=== PATIENT | female | born 1985 | race Two or more races ===

== ENCOUNTER 2020-10-26 12:33 | Inpatient (IN) | payer OTHER ==
[~2020-10-26] VITALS: Ht 170.2 cm; Wt 67.5 kg
[2020-10-26] MEDS ORDERED: ONDANSETRON HCL 4 MG/2 ML VIAL IV ONE (13:15)
[2020-10-26] MEDS ORDERED: SODIUM CHLORIDE 0.9% 1,000 ML IV ONE (13:15)
[2020-10-26] MEDS ORDERED: KETOROLAC TROMETH 30 MG/ML 1ML VIAL IV ONE ×2 (13:15→17:45)
[2020-10-26 13:21] LABS: Basophils # (auto) 0.1 10 ^3/uL (0-0.2); Basophils % (auto) 0.5 % (0.0-2.0); Eosinophils # (auto) 0 10 ^3/uL (0-0.8); Eosinophils % (auto) 0.1 % (0.0-7.0); Hematocrit 38.4 % (36.0-46.0); Hemoglobin 13.3 g/dL (12.2-16.2); Lymphocytes % (auto) 8.3 % (10.0-50.0); Mean Corpuscular Hemoglobin 31.5 pg (28.0-32.0); Mean Corpuscular Hgb Conc. 34.5 g/dL (32.0-36.0); Mean Corpuscular Volume 91.1 fL (80.0-100.0); Monocytes # (auto) 0.8 10 ^3/uL (0-1.3); Neutrophils # (auto) 9.8 10 ^3/uL (1.6-8.6); Neutrophils % (auto) 84.1 % (37.0-80.0); Nucleated Red Blood Cells % 0.1 %; Red Blood Cells 4.21 10^6/uL (4.0-5.20); Red Cell Distribution Width 12.3 % (11.8-14.3); White Blood Cell 11.7 10^3/uL (4.4-10.8)
[2020-10-26 13:43] LABS: Potassium 3.8 mmol/L (3.5-5.1)
[2020-10-26 13:44] LABS: Urine Bacteria NONE SEEN /hpf (None Seen); Urine Blood 3+ /uL (Negative); Urine Mucus MODERATE (None Seen); Urine Specific Gravity 1.031 (1.001-1.035); Urine WBC 2 /hpf (0 - 5)
[2020-10-26] MEDS ORDERED: IOHEXOL 300 MG/ML 100ML BOTTLE IJ ONE (13:55)
[2020-10-26] MEDS ORDERED: cefTRIAXone 1GM/50ML D5W 50 ML IV ONE (14:45)
[2020-10-26] MEDS ORDERED: ALUM & MAG HYDROX-SIMETH LIQ(MAALOX) 30 ML PO PRN (15:15)
[2020-10-26] MEDS ORDERED: SODIUM CHLORIDE 0.9% 1,000 ML IV SCH (15:15)
[2020-10-26] MEDS ORDERED: MORPHINE SULFATE INJECTION 2 MG/ML SYRG IV PRN ×3 (15:15→17:45)
[2020-10-26] MEDS ORDERED: NITROGLYCERIN 0.4 MG SL TAB SL PRN ×2 (15:15)
[2020-10-26] MEDS ORDERED: ACETAMINOPHEN 325 MG TAB PO PRN (15:15)
[2020-10-26] MEDS ORDERED: LORazepam 0.5 MG TAB PO PRN (15:15)
[2020-10-26] MEDS ORDERED: HYDROcodone-ACET 5/325MG TAB PO PRN (15:15)
[2020-10-26] MEDS ORDERED: DOCUSATE SOD 100 MG CAP PO PRN (15:15)
[2020-10-26] MEDS ORDERED: LACTATED RINGER'S 1,000 ML IV ONE (15:45)
[2020-10-26] MEDS ORDERED: metroNIDAZOLE 500MG/100ML 100 ML IV ONE (16:00)
[2020-10-26 16:24] LABS: Cholesterol 163 mg/dL (< 200)
[2020-10-26 16:27] LABS: HDL Cholesterol 62 mg/dL (40-59); LDL Cholesterol 90 mg/dL (< 100); Triglycerides 39 mg/dL (< 150)
[2020-10-26 16:45] LABS: INR 1.01 (0.9-1.15)
[2020-10-26] MEDS ORDERED: NEOSTIGMINE 1 MG/ML INJ (10mg/10ML VIAL) IV ONE (17:30)
[2020-10-26] MEDS ORDERED: ceFAZolin 1GM/50ML 100 ML IV ONE (17:30)
[2020-10-26] MEDS ORDERED: BUPIVACAINE 0.25% INJ 50ML VIAL ONE (17:30)
[2020-10-26] MEDS ORDERED: GLYCOPYRROLATE 0.2 MG/ML 1ML VIAL IV ONE (17:30)
[2020-10-26] MEDS ORDERED: fentaNYL CITRATE 100 MCG/2 ML VL ONE (17:33)
[2020-10-26] MEDS ORDERED: MIDAZOLAM HCL 2MG/2ML 2ml VIAL (1mg/ml) ONE (17:33)
[2020-10-26] MEDS ORDERED: MEPERIDINE HCL (50 MG/ML) 1 ML VIAL ONE (17:34)
[2020-10-26 17:43] LABS: INR 1.01 (0.9-1.15); Partial Thromboplastin Time 27.3 sec (23.0-31.2)
[2020-10-26] MEDS ORDERED: HYDROmorphone HCL 2 MG/ML VL IV PRN (17:45)
[2020-10-26] MEDS ORDERED: LABETALOL HCL 5 MG/ML 4ML SYRINGE IV PRN (17:45)
[2020-10-26] MEDS ORDERED: ONDANSETRON HCL 4 MG/2 ML VIAL IV PRN (17:45)
[2020-10-26] MEDS ORDERED: ePHEDrine SULFATE 50 MG/ML AMP IV PRN (17:45)
[2020-10-26] MEDS ORDERED: PROPOFOL 10 MG/ML 20 ML IV ONE (17:53)
[2020-10-26] MEDS ORDERED: DexAMETHasone SOD PHOS 10MG/1ML VIAL INJ ONE ×2 (17:53→18:08)
[2020-10-26] MEDS: D5W/SOD CHL 0.45%/KCL 20MEQ 1,000 ML IV SCH (19:30)
[2020-10-26 20:35] VITALS: BP 115/78
[2020-10-26 21:49] VITALS: BP 115/78
[2020-10-26] MEDS: metroNIDAZOLE 500MG/100ML 100 ML IV SCH (22:19)
[2020-10-26 23:43] LABS: Amphetamine Screen, Urine NEGATIVE (NEGATIVE); Barbiturate Scree,Urine NEGATIVE (NEGATIVE); Benzodiazephine Screen, Urine NEGATIVE (NEGATIVE); Cannabinoid Screen, Urine NEGATIVE (NEGATIVE); Cocaine Screen, Urine NEGATIVE (NEGATIVE); Opiate Scree,Urine NEGATIVE (NEGATIVE); Phencyclidine Screen, Urine NEGATIVE (NEGATIVE)
[2020-10-27] MEDS: MORPHINE SULFATE INJECTION 2 MG/ML SYRG IV PRN ×2 (02:35→08:03)
[2020-10-27] MEDS: ONDANSETRON HCL 4 MG/2 ML VIAL IV PRN ×2 (02:35→08:03)
[2020-10-27 04:06] VITALS: BP 116/76
[2020-10-27] MEDS: metroNIDAZOLE 500MG/100ML 100 ML IV SCH (05:49)
[2020-10-27 06:05] LABS: Basophils # (auto) 0 10 ^3/uL (0-0.2); Eosinophils # (auto) 0 10 ^3/uL (0-0.8); Hemoglobin 11.6 g/dL (12.2-16.2); Lymphocytes # (auto) 0.8 10 ^3/uL (0.4-5.4); Lymphocytes % (auto) 7.8 % (10.0-50.0); Mean Corpuscular Volume 91.4 fL (80.0-100.0); Monocytes # (auto) 0.6 10 ^3/uL (0-1.3); Monocytes % (auto) 5.8 % (0.0-12.0); Neutrophils # (auto) 8.9 10 ^3/uL (1.6-8.6); Neutrophils % (auto) 86.4 % (37.0-80.0); Nucleated Red Blood Cells % 0.1 %; Red Blood Cells 3.61 10^6/uL (4.0-5.20); Red Cell Distribution Width 12.2 % (11.8-14.3); White Blood Cell 10.3 10^3/uL (4.4-10.8)
[2020-10-27 06:13] LABS: INR 1.04 (0.9-1.15); Partial Thromboplastin Time 28.6 sec (23.0-31.2)
[2020-10-27 06:21] LABS: Albumin 2.9 g/dL (3.4-5.0); Calcium 8.4 mg/dL (8.5-10.1); Potassium 4.1 mmol/L (3.5-5.1)
[2020-10-27 06:24] LABS: BUN/Creatinine Ratio 13.9; Bilirubin, Total 0.5 mg/dL (0.2-1.0); Phosphorus 2.8 mg/dL (2.5-4.90); Total Protein 5.9 g/dL (6.4-8.2)
[2020-10-27] MEDS: D5W/SOD CHL 0.45%/KCL 20MEQ 1,000 ML IV SCH (08:19)
[2020-10-27 08:41] VITALS: BP 118/72
[2020-10-27] MEDS ORDERED: cefTRIAXone 1GM/50ML D5W 50 ML IV SCH (09:00)
[2020-10-27 12:22] VITALS: BP 118/72
[2020-10-27 13:00] VITALS: BP 132/72
== END 2020-10-27 14:00 | disposition home or self-care (01) | DRG 343 ==
LOC: ER 12:33 → TELE 15:14 → TELE-CENTR 20:35
PROVIDERS: ADMIT Hospitalist; ATTEND Internal Medicine
PROC: 0DTJ4ZZ Resection of Appendix, Percutaneous Endoscopic Approach (ICD-10-PCS; principal; 2020-10-26 17:40)
DX: K35.30 Acute appendicitis with localized peritonitis, without perforation or gangrene (principal); Z20.822 Contact with and (suspected) exposure to COVID-19; D72.829 Elevated white blood cell count, unspecified; R00.0 Tachycardia, unspecified
CPT/HCPCS: 36415; 74177; 80048; 80053; 80061; 80307; 81001; 81025; 82306; 83036; 83735; 84100; 84443; 84484; 84702; 85025; 85610; 85730; 86850; 86900; 86901; 87040; 87086; 87426; 96361; 96365; 96367; 96375; G0378; J0690; J0696; J1100; J1885; J2250; J2405; J2704; J3490

== ENCOUNTER 2025-02-14 23:23 | Inpatient (IN) | payer OTHER ==
[~2025-02-14] VITALS: Ht 172.7 cm; Wt 59.1 kg
[2025-02-15] MEDS: ALPRAZolam 0.5 MG TAB PO ONE (00:49)
[2025-02-15 01:00] VITALS: PULSE 172; RESP 14; O2SAT 95
--- NOTE | 2025-02-15 01:18 | ED.PDOC ---
History of Present Illness HPI Comments Patient is a otherwise healthy 39-year-old female who arrives the ED today with complaints of palpitations and anxiety concerns. Patient states she was asleep when she woke up due to what she thought was anxiety. Patient denies any history of medication use or medical conditions. Patient has no history of a nxiety. Patient did not look toxic at time of evaluation. Chief Complaint: Anxiety Time Seen by MD: 00:34 Primary Care Provider: NI Reviewed Notes: Nurses Notes Allergies: Coded Allergies: NO KNOWN ALLERGIES (Unverified , 10/26/20) Home Meds No Active Prescriptions or Reported Meds Information Source: Patient, Friend Mode of Arrival: Ambulatory Severity: Moderate Timing: Minutes Duration: Since onset Prehospital treatment: None Past Medical History PAST MEDICAL HISTORY: Denies Surgical History: Denies all surgeries STEAM HAND History: Denies all STEAM HAND Hx Family History Family History: Reviewed,noncontributory to illness Social History Smoker: Non-Smoker Alcohol: Denies ETOH Use Drugs: Denies Drug Use Lives In: Home Constitutional: denies: chills, diaphoresis, fatigue, fever, malaise, sweats, weakness, others EENTM: denies: blurred vision, double vision, ear bleeding, ear discharge, ear drainage, ear pain, ear ringing, eye pain, eye redness, hearing loss, mouth pain, mouth swelling, nasal discharge, nose bleeding, nose congestion, nose pain, photophobia, tearing, throat pain, throat swelling, voice changes, others Respiratory: denies: cough, hemoptysis, orthopnea, SOB at rest, shortness of breath, SOB with excertion, stridor, wheezing, others Cardiovascular: reports: palpitations; denies: chest pain, dizzy spells, diaphoresis, Dyspnea on exertion, edema, irregular heart beat, left arm pain, lightheadedness, PND, syncope, others Gastrointestinal: denies: abdomen distended, abdominal pain, blood streaked bowels, constipated, diarrhea, dysphagia, difficulty swallowing, hematemesis, melena, nausea, poor appetite, poor fluid intake, rectal bleeding, rectal pain, vomiting, others Genitourinary: denies: abnormal vagina bleeding, burning, dyspareunia, dysuria, flank pain, frequency, hematuria, incontinence, pain, , vagina discharge, urgency, others Neurological: denies: dizziness, fainting, headache, left sided numbness, left sided weakness, numbness, paresthesia, pre-existing deficit, right sided num bness, right sided weakness, seizure, speech problems, tingling, tremors, weakness, others Musculoskeletal: denies: back pain, gout, joint pain, joint swelling, muscle pain, muscle stiffness, neck pain, others Integumetry: denies: bruises, change in color, change in hair/nails, dryness, laceration, lesions, lumps, rash, wounds, others Allergic/Immunocompromised: denies: Difficulty Healing, Frequent Infections, Hives, Itching, others Hematologic/Lymphatic: denies: anemia, blood clots, easy bleeding, easy bruising, swollen glands, others Endocrine: denies: excessive hunger, excessive sweating, excessive thirst, excessive urination, flushing, intolerance to cold, intolerance to heat, unexplained weight gain, unexplained weight loss, others Psychiatric: denies: anxiety, bipolar disorder, depression, hopeless, panic disorder, schizophrenia, sleepless, suicidal, others Physical Exam General Appearance: Mild Distress (Patient was in moderate distress due to what appears to be anxiety due to her palpitations ), Normal HEENT: Normal ENT Inspection, Pharynx Normal, TMs Normal Neck: Full Range of Motion, Non-Tender, Normal, Normal Inspection Respiratory: Chest Non-Tender, Lungs Clear, No Accessory Muscle Use, No Respiratory Distress, Normal Breath Sounds Cardiovascular: Irregular, No Edema, No JVD, No Murmur, No Gallop, Normal Peripheral Pulses, Tachycardia Breast Exam: Deferred Gastrointestinal: No Organomegaly, Non Tender, No Pulsatile Mass, Normal Bowel Sounds, Soft Genitalia: Deferred Pelvic: Deferred Rectal: Deferred Extremities: No calf tenderness, Normal capillary refill, Normal inspection, Normal range of motion, Non-tender, No pedal edema Neurologic: Alert, No Motor Deficits, Normal Affect, Normal Mood, No Sensory Deficits Cerebellar Function: Normal Reflexes: Normal Skin: Dry, Normal Color, Warm Lymphatic: No Adenopathy Was a procedure done? Was a procedure done?: No Differential Dx Considerations may include: Anxiety, acute coronary syndrome, UTI X-Ray, Labs, Meds, VS Vital Signs Date Time Temp Pulse Resp B/P (MAP) Pulse Ox O2 Delivery O2 Flow Rate FiO2 02/15/25 00:55 168 02/14/25 23:23 97.7 104 16 144/86 (105) 99 97.7 Current Medications Medications (Trade) Dose Ordered Sig/Patricia Route Start Time Stop Time Status Last Admin Alprazolam (Xanax Tablet) 0.5 mg ONCE ONCE PO 02/15/25 00:45 02/15/25 00:46 DC 02/15/25 00:49 X-Ray, Labs, Meds, VS Comment Patient is provided with a dose of Xanax to aid in the anxiety, unfortunately, EKG came back with an atrial fibrillation at a rate of 168. RSR in V1 or V2 with a right VC ED. also probable left ventricular hypertrophy. QT interval of 277. Patient will be pharmaceutical converted and admitted for new onset AFib and will require a cardiac evaluation. Time of 1ST Reevaluation: 01:17 Reevaluation 1ST: Unchanged Consultation: PCP, Cardiology Patient Education/Counseling: Diagnosis, Treatment Family Education/Counseling: Diagnosis, Treatment SEPSIS Sepsis Screen Date sepsis recognized/suspect: Feb 15, 2025 Time Sepsis recognized/suspect: 37 Recent Procedure: No On Antibiotic Therapy: No Respiratory Rate >20: No Heart Rate >90: Yes Temp<36 C (96.8 F) or >38.3 C: No SBP <90 or MAP <65 mmHG: No New Acute Mental Status Change: No Is the patient on CPAP, BIPAP,: No Physician Orders Electrocardigram (02/15/25 00:39) Urinalysis (02/15/25 00:39) Heplock Iv (02/15/25 ) Complete Blood Count (02/15/25 01:04) Comprehensive Metabolic Panel (02/15/25 01:04) Lipase (02/15/25 01:04) Lactic Acid W/ Reflex Order (02/15/25 01:04) Troponin-I Hs (02/15/25 01:04) Troponin-I Hs (02/15/25 02:04) Troponin-I Hs (02/15/25 04:04) Continuous Ekg Monitoring 08,12,16,20,00,04 (02/15/25 01:04) Vital Signs Date Time Temp Pulse Resp B/P (MAP) Pulse Ox O2 Delivery O2 Flow Rate FiO2 02/15/25 00:55 168 02/14/25 23:23 97.7 104 16 144/86 (105) 99 97.7 Medications Medications Dose Ordered Sig/Patricia Route Start Time Stop Time Status Last Admin Dose Admin Alprazolam 0.5 mg ONCE ONCE PO 02/15/25 00:45 02/15/25 00:46 DC 02/15/25 00:49 Departure 1 Departure Time of Disposition: 01:19 Impression: Primary Impression: Atrial fibrillation Disposition: ADMITTED INPATIENT Condition: Stable e-Prescriptions No Active Prescriptions or Reported Meds Discharged With: Self Critical Care Note Critical Care Time?: No Stability Stability form required: No Heart Score Heart Score: Heart Score Response (Comments) Value History Slightly Suspicious 0 EKG Repolarization Disturb 1 Age <45 0 Risk Factors No known risk factors 0 Troponin N/A 0 Total 1 VASILE LINO PAC Feb 15, 2025 01:18
[2025-02-15] MEDS: dilTIAZem 25 MG/5 ML VIAL IV ONE (01:40)
[2025-02-15 01:51] LABS: Hematocrit 44.1 % (36.0-46.0); Hemoglobin 15.2 g/dL (12.2-16.2); Mean Corpuscular Hemoglobin 31.3 pg (28.0-32.0); Mean Corpuscular Volume 90.6 fL (80.0-100.0); Nucleated Red Blood Cells % 0.1 %
[2025-02-15 01:55] LABS: Urine Protein, UAD Negative (Negative)
[2025-02-15 02:18] LABS: Alanine Aminotransferase 17 U/L (7-40); Albumin 4.7 g/dL (3.2-4.8); Alkaline Phosphatase 68 U/L (46-116); Anion Gap 8 (5-15); BUN/Creatinine Ratio 13.8 (10.0-20.0); Blood Urea Nitrogen 9 mg/dL (9-23); Calcium 9.5 mg/dL (8.7-10.4); Carbon Dioxide 25 mmol/L (20-31); Chloride 106 mmol/L (98-107); Glucose 105 mg/dL (74-106); Lipase 34 U/L (12-53); Potassium 3.7 mmol/L (3.5-5.1); Sodium 139 mmol/L (136-145); Total Protein 7.3 g/dL (5.7-8.2)
[2025-02-15 02:19] LABS: Bilirubin, Total 0.6 mg/dL (0.2-1.0)
[2025-02-15] MEDS ORDERED: METOPROLOL TARTRATE 1MG/1ML-5ML VIAL IV SCH (02:30)
[2025-02-15] MEDS: METOPROLOL TARTRATE 1MG/1ML-5ML VIAL IV SCH (02:48)
[2025-02-15] MEDS ORDERED: TEMAZEPAM 15 MG CAP PO PRN (04:30)
[2025-02-15] MEDS ORDERED: ACETAMINOPHEN 325 MG TAB PO PRN (04:30)
[2025-02-15] MEDS ORDERED: MORPHINE SULFATE INJ 2 MG/ml SYRG IV PRN (04:30)
[2025-02-15] MEDS ORDERED: ONDANSETRON HCL 4 MG/2 ML VIAL IV PRN (04:30)
[2025-02-15] MEDS: AMIODARONE 360mg/200mL PREMIX 200 ML IV ONE (04:30)
[2025-02-15] MEDS ORDERED: NITROGLYCERIN 0.4 MG SL TAB SL PRN (04:30)
[2025-02-15] MEDS: AMIODARONE BOLUS KIT 100 ML IV ONE (04:30)
--- NOTE | 2025-02-15 04:38 | DVHHP2 ---
History of Present Illness Reason for Visit: Palpitations History of Present Illness 39-year-old female presents for evaluation of palpitations. Patient reports taking a nap in the afternoon and being awoken by what she thought was initially anxiety. She developed severe palpitations. She presented for further evaluation. No complaints of chest pain, shortness for breath or nausea. No other acute complaints reported. Past Medical History Denies Past Surgical History Denies Family History Noncontributory Smoke: No ALCOHOL: occassional Drugs: None Lives: with Family Review of Systems Review of Systems Review of systems are currently negative otherwise addressed in HPI. Allergies: Coded Allergies: NO KNOWN ALLERGIES (Unverified , 10/26/20) Exam Vital Signs Vital Signs Date Time Temp Pulse Resp B/P (MAP) Pulse Ox O2 Delivery O2 Flow Rate FiO2 02/15/25 04:00 112 02/15/25 03:46 108/76 02/15/25 03:20 15 95 02/14/25 23:23 97.7 97.7 Exam Gen: 39-year-old female in mild distress Skin: Warm, dry, normal color and texture, no rash. HEENT: Normocephalic atraumatic, mucous membranes moist and pink. Neck: Cervical and supraclavicular nodes normal without enlargement, trachea is midline, thyroid gland is normal without masses. Pulmonary: Clear to auscultation and percussion bilaterally. Cardiac: Regular rhythms Abdomen: Soft, nontender, nondistended, bowel sounds present all 4 quadrants, no guarding, no rigidity, no organomegaly. Extremities: No cyanosis, clubbing, no edema Neuro: Cranial nerves II through XII grossly intact, normal affect and speech, no focal motor deficits. Labs/Xrays Labs Test 02/15/25 02:43 02/15/25 01:37 02/15/25 00:27 Range/Units Troponin I High Sensitivity 8 </=34 ng/L White Blood Count 7.7 4.4-10.8 10^3/uL Red Blood Count 4.87 4.0-5.20 10^6/uL Hemoglobin 15.2 12.2-16.2 g/dL Hematocrit 44.1 36.0-46.0 % Mean Corpuscular Volume 90.6 80.0-100.0 fL Mean Corpuscular Hemoglobin 31.3 28.0-32.0 pg Mean Corpuscular Hemoglobin Concent 34.6 32.0-36.0 g/dL Red Cell Distribution Width 13.2 11.8-14.3 % Platelet Count 297 140-450 10^3/uL Mean Platelet Volume 9.0 6.9-10.8 fL Neutrophils (%) (Auto) 69.0 37.0-80.0 % Lymphocytes (%) (Auto) 20.9 10.0-50.0 % Monocytes (%) (Auto) 8.3 0.0-12.0 % Eosinophils (%) (Auto) 1.0 0.0-7.0 % Basophils (%) (Auto) 0.8 0.0-2.0 % Neutrophils # (Auto) 5.3 1.6-8.6 10 ^3/uL Lymphocytes # (Auto) 1.6 0.4-5.4 10 ^3/uL Monocytes # (Auto) 0.6 0-1.3 10 ^3/uL Eosinophils # (Auto) 0.1 0-0.8 10 ^3/uL Basophils # (Auto) 0.1 0-0.2 10 ^3/uL Nucleated Red Blood Cells 0.1 % Sodium Level 139 136-145 mmol/L Potassium Level 3.7 3.5-5.1 mmol/L Chloride Level 106 98-107 mmol/L Carbon Dioxide Level 25 20-31 mmol/L Anion Gap 8 5-15 Blood Urea Nitrogen 9 9-23 mg/dL Creatinine 0.65 0.550-1.02 mg/dL Glomerular Filtration Rate Calc 116 >90 mL/min BUN/Creatinine Ratio 13.8 10.0-20.0 Serum Glucose 105 74-106 mg/dL Lactic Acid Level 1.3 0.4-2.0 mmol/L Calcium Level 9.5 8.7-10.4 mg/dL Total Bilirubin 0.6 0.2-1.0 mg/dL Aspartate Amino Transferase (AST) 18 13-40 U/L Alanine Aminotransferase (ALT) 17 7-40 U/L Alkaline Phosphatase 68 46-116 U/L Total Protein 7.3 5.7-8.2 g/dL Albumin 4.7 3.2-4.8 g/dL Lipase 34 12-53 U/L Urine Color Colorless Yellow Urine Clarity Clear Clear Urine pH 7.0 5.0-9.0 Urine Specific Dalton 1.002 1.001-1.035 Urine Protein Negative Negative Urine Ketones Negative Negative Urine Blood Negative Negative /uL Urine Nitrite Negative Negative Urine Bilirubin Negative Negative Urine Urobilinogen Normal Negative mg/dL Urine Leukocyte Esterase Negative Negative /uL Urine RBC None seen 0 - 4 /hpf Urine Microscopic WBC < 1 0-5 /HPF Urine Squamous Epithelial Cells Few <5 /hpf Urine Bacteria Few H None Seen /hpf Urine Glucose Normal Normal mg/dL SEPSIS Sepsis Screen Date sepsis recognized/suspect: Feb 15, 2025 Time Sepsis recognized/suspect: 37 Recent Procedure: No On Antibiotic Therapy: No Respiratory Rate >20: No Heart Rate >90: Yes Temp<36 C (96.8 F) or >38.3 C: No SBP <90 or MAP <65 mmHG: No New Acute Mental Status Change: No Is the patient on CPAP, BIPAP,: No Physician Orders Electrocardigram (02/15/25 00:39) Heplock Iv (02/15/25 ) Continuous Ekg Monitoring 08,12,16,20,00,04 (02/15/25 01:04) Amiodarone Bolus Kit (Cordarone) (02/15/25 04:30) Amiodarone 360mg/200ml Premix (Nexterone (02/15/25 04:30) Amiodarone 360mg/200ml Premix (Nexterone (02/15/25 10:30) * Cardiology Consult (02/15/25 04:23) Basic Metabolic Panel (02/16/25 04:00) Thyroid Stimulating Hormone (02/15/25 04:23) Admit (02/15/25 04:23) Temazepam (Restoril) (02/15/25 04:30) Ondansetron Hcl (Zofran) (02/15/25 04:30) Cardiac Diet-2gna,Lofat,Lochol (02/15/25 Breakfast) Echo 2d Mode Cardiac Dop (02/15/25 04:23) Condition: Fair (02/15/25 04:23) Acetaminophen Tablet (Tylenol Tablet) (02/15/25 04:30) Bedrest With Bathroom Privileg (02/15/25 04:23) Nitroglycerin Sublingual (Ntrostat Subli (02/15/25 04:30) Morphine Sulfate Injection (02/15/25 04:30) Stat Ekg For Chest Pain (02/15/25 04:23) Notify Md Of Changes From Base (02/15/25 04:23) Oil Heater Operator For 24 Hours (02/15/25 04:23) Emergency Dysrhythmia Protocol (02/15/25 04:23) Rhythm Strips Once Every Shift (02/15/25 04:23) Oxygen By Nasal Cannula (02/15/25 04:23) Vital Signs Date Time Temp Pulse Resp B/P (MAP) Pulse Ox O2 Delivery O2 Flow Rate FiO2 02/15/25 04:00 112 02/15/25 03:46 100 108/76 02/15/25 03:46 108 108/76 02/15/25 03:20 122 108/76 02/15/25 03:20 123 15 108/76 (87) 95 02/15/25 02:55 124 7 122/78 (93) 94 02/15/25 02:55 132 122/78 02/15/25 02:50 164 8 122/80 (94) 95 02/15/25 02:48 168 122/80 02/15/25 02:30 144 8 113/86 (95) 97 02/15/25 00:55 168 02/14/25 23:23 97.7 104 16 144/86 (105) 99 97.7 Laboratory Tests Test 02/15/25 01:37 Lactic Acid Level 1.3 mmol/L (0.4-2.0) White Blood Count 7.7 10^3/uL (4.4-10.8) Medications Medications Dose Ordered Sig/Patricia Route Start Time Stop Time Status Last Admin Dose Admin Alprazolam 0.5 mg ONCE ONCE PO 02/15/25 00:45 02/15/25 00:46 DC 02/15/25 00:49 0.5 MG Diltiazem HCl 15 mg ONCE ONCE IV 02/15/25 01:15 02/15/25 01:16 DC 02/15/25 01:40 15 MG Metoprolol Tartrate 5 mg Q5M IV 02/15/25 02:30 02/15/25 04:32 DC 02/15/25 03:20 5 MG Assessment/Plan Assessment/Plan Assessment AFib with RVR Plan Admit the patient to telemetry to the hospitalist Echocardiogram pending Cardiology consult Continue amiodarone ip Plan discussed with: Patient My Orders Orders - HANK AVILA Procedure Category Date Status Time * Cardiology Consult CONS 02/15/25 Transmitted 04:23 Basic Metabolic Panel LAB 02/16/25 Verified 04:00 Thyroid Stimulating LAB 02/15/25 Transmitted Hormone 04:23 Admit ADMIT 02/15/25 Transmitted 04:23 Temazepam (Restoril) PHA 02/15/25 Transmitted 04:30 Ondansetron Hcl PHA 02/15/25 Transmitted (Zofran) 04:30 Cardiac DIET 02/15/25 Transmitted Diet-2gna,Lofat,Lochol Breakfast Echo 2d Mode Cardiac US 02/15/25 Transmitted DOP 04:23 Condition: Fair [facility] 02/15/25 Transmitted 04:23 Acetaminophen Tablet [facility] 02/15/25 Verified (Tylenol Tablet) 04:30 Bedrest With Bathroom [facility] 02/15/25 Verified Privileg 04:23 Nitroglycerin [facility] 02/15/25 Verified Sublingual (Ntrostat 04:30 Morphine Sulfate [facility] 02/15/25 Verified Injection 04:30 Stat Ekg For Chest [facility] 02/15/25 Verified Pain 04:23 Notify Md Of Changes [facility] 02/15/25 Verified From Base 04:23 Oil Heater Operator For [facility] 02/15/25 Verified 24 Hours 04:23 Emergency Dysrhythmia [facility] 02/15/25 Verified Protocol 04:23 Rhythm Strips Once [facility] 02/15/25 Verified Every Shift 04:23 Oxygen By Nasal RT 02/15/25 Verified Cannula 04:23 Date of Service: Feb 15, 2025 Billing Provider: HANK AVILA Common Visit Codes: [id number] INP/OBS CARE (HIGH) HANK AVILA Feb 15, 2025 04:38
--- NOTE | 2025-02-15 05:32 | DVH ---
CHEST RADIOGRAPH Indication: afib Technique: Single frontal view of the chest was obtained COMPARISON: None FINDINGS: Lines and Tubes: None Lungs: Clear Pleura: No effusion. No pneumothorax. Cardiomediastinal contours: Unremarkable Bones: Unremarkable IMPRESSION: 1. No acute disease.
[2025-02-15 05:43] LABS: INR 0.99 (0.9-1.15); Partial Thromboplastin Time 30.6 SEC (24.5-34.5); Prothrombin Time 10.5 sec (9.3-11.8)
[2025-02-15 08:00] VITALS: PULSE 82; RESP 16; O2SAT 96
[2025-02-15] MEDS: AMIODARONE 360mg/200mL PREMIX 200 ML IV SCH (10:30)
[2025-02-15 13:46] LABS: Amphetamine Screen, Urine Neg (NEGATIVE); Barbiturate Scree,Urine Neg (NEGATIVE); Benzodiazephine Screen, Urine Neg (NEGATIVE); Cannabinoid Screen, Urine Neg (NEGATIVE); Cocaine Screen, Urine Neg (NEGATIVE); Opiate Scree,Urine Neg (NEGATIVE); Phencyclidine Screen, Urine Neg (NEGATIVE)
--- NOTE | 2025-02-15 14:20 | DVHPNRES ---
Progress Note Date Seen: Feb 15, 2025 Resident Creating Document: DENISSE MIDDLETON ANNA Has the PT tested + for MRSA If YES, has PT been informed?: No Medical Necessity Reason Pt with a Central, PICC or Fol: No Subjective Review of Systems 39-year-old female presents for evaluation of palpitations. Patient reports taking a nap in the afternoon and being awoken by what she thought was initially anxiety. She developed severe palpitations. She presented for further evaluation. No complaints of chest pain, shortness for breath or nausea. No other acute complaints reported. Per patient, he has on and off palpitation since 7 years which mostly happens prior to menstruation starts, but has never been diagnosed with the atrial fibrillation. Today, the patient seen and examined at the bedside. Patient is feeling better since admission does not have any active complaint including palpitation or chest pain. Objective vital signs Vital Sign Date Time Temp Pulse Resp B/P (MAP) Pulse Ox O2 Delivery O2 Flow Rate FiO2 02/15/25 12:19 97.0 70 15 121/90 (100) 95 97.0 02/15/25 08:00 Room Air* 0 21 medications Current Medications Medications Dose Ordered Sig/Patricia Route Start Time Stop Time Status Last Admin Dose Admin Temazepam 15 mg QHSP PRN PO 02/15/25 04:30 Ondansetron HCl 4 mg Q4HP PRN IV 02/15/25 04:30 Acetaminophen 650 mg Q6HP PRN PO 02/15/25 04:30 Examination General Appearance: Alert, Oriented X3, Cooperative, No acute distress HEENT: Atraumatic, PERRLA, EOMI, Mucous membrane moist/pink Respiratory: Clear to auscultation, Normal air movement Cardiovascular: Regular rate, Normal S1, Normal S2, No murmurs, no chest wall tenderness Abdominal: Normal bowel sounds, Soft, No tenderness, No hepatospenomegaly, No masses Extremities: No clubbing, No cyanosis, No edema, Normal pulses, No tenderness/swelling Skin: No rashes, No breakdown, No significant lesion Neuro: Normal gait, Normal speech, Strength at 5/5 X4 ext, Normal tone, Sensation intact, Cranial nerves 3-12 NL, Reflexes 2+ Psych/Mental Status: Mental status NL, Mood NL laboratory and microbiology Laboratory Tests 02/15/25 01:37 Test 02/15/25 01:37 Range/Units Serum Glucose 105 74-106 mg/dL Labs and/or images reviewed: Labs reviewed by me, Image(s) reviewed by me Problem List/Assessment/Plan Problem List/Assessment/Plan Palpitation, due to atrial fibrillation Atrial fibrillation with RVR, reverted to normal sinus rhythm with amiodarone Anxiety * EKG upon admission showed atrial fibrillation with fast ventricular response * Currently, EKGs shows normal sinus rhythm with no significant ST or T-wave changes * Serial trop I is within normal limits * Chest x-ray shows no intrathoracic abnormalities * Chads Vasc score: 0 Plan/recommendation * Discontinue amiodarone drip * Check echocardiogram * We will monitor the patient on telemetry * Check UDS DIET: Regular diet DVT PROPHYLAXIS: Lovenox CODE STATUS: Goal of care discussed for more than 18 minutes, full code DISPOSITION: Telemetry Patient's status and plan discussed with the patient. Case discussed with Dr. Wolf. Plan discussed with: Patient, Other My Orders My Orders Orders - DENISSE MIDDLETON Procedure Category Date Status Time Electrocardigram EKG 02/15/25 Logged 08:24 Date of Service: Feb 15, 2025 Billing Provider: ROSCOE WOLF MD Common Visit Codes: [id number] INP/OBS CARE(HIGH) DENISSE MIDDLETON RESDIENT Feb 15, 2025 14:19 ROSCOE WOLF MD Feb 18, 2025 13:34
--- NOTE | 2025-02-15 14:29 | DVHSR ---
APPROVED REPORT EXAM: Two-dimensional and M-mode echocardiogram with Doppler and color Doppler. Blood Pressure: 120/87 mmHg INDICATION Atrial Fibrillation RISK FACTORS Height: 5'8", Weight: 130 DIMENSIONS LVDd4.4 (3.8-5.7cm)LA (2D)3.7 (1.9-4.0cm)Aortic Root3.5 (2.0-3.7cm) LVDs3.0 (2.5-4.0cm)LA (MM) (1.9-4.0cm)Aortic Cusp Exc1.7 (1.5-2.0cm) EF (%) 60.0 (55-70%)Rt. Atrium4.5 (1.9-4.0cm)Asc. Aorta cm IVSd1.0 (0.7-1.1cm)RV (D)3.9 (1.8-2.4cm) PWd0.9 (0.7-1.1cm) Mitral Valve MitralMitral Stenosis E wave0.66m/sMV Mean GR.mmHg A wave0.62m/sMV Peak GR.mmHg E/A ratio1.12D MVAcm2 DECEL [id number] 1/2 Timems Aortic Valve Aortic ValveAortic Stenosis V10.77m/Mikal Mean GR.2mmHg V21.00m/Mikal Peak GR.4mmHg LVOT Diameter1.9 (1.8-2.4cm)Doppler AVA2.18cm2 Pulmonic Valve V20.56m/s Tricuspid Valve TR Velocity1.85m/s [id number] Other Information Technically limited study due to body habitus. Conclusion lvef 65% normal RV function and size normal atria normal pericardium no severe valve abnormalities noted
[2025-02-15 21:25] VITALS: PULSE 78; RESP 18
[2025-02-16] VITALS (8 sets, daily range): BP systolic 94–138; BP diastolic 63–107; PULSE 68–91; RESP 14–20; TEMP 97.4–98.2; O2SAT 97–99
[2025-02-16 07:24] LABS: Chloride 103 mmol/L (98-107); Potassium 3.7 mmol/L (3.5-5.1); Sodium 138 mmol/L (136-145)
[2025-02-16 07:25] LABS: Anion Gap 8 (5-15); Calcium 9.9 mg/dL (8.7-10.4); Carbon Dioxide 27 mmol/L (20-31)
[2025-02-16 07:30] LABS: BUN/Creatinine Ratio 12.9 (10.0-20.0); Glucose 92 mg/dL (74-106)
[2025-02-16 07:31] LABS: Blood Urea Nitrogen 9 mg/dL (9-23)
--- NOTE | 2025-02-16 14:56 | DVHINCON2 ---
Date Seen: Feb 16, 2025 Referring Physician MD Josh resident Reason for Consultation Atrial fibrillation History of Present Illness This is a 39-year-old female patient who presents to emergency room with chief complaint of palpitations for 1 hour prior to emergency room arrival. The patient decided to come to the emergency room for further evaluation. Initial twelve electrocardiogram reveals atrial fibrillation with rapid ventricular response. The patient was given diltiazem 15 mg IV x1 followed by an amiodarone bolus and an amiodarone drip per protocol. At the time of assessment, the patient is now in a normal sinus rhythm. The patient denies any past medical history other than previous surgical history of appendectomy. Past Medical History Past medical history reviewed. No other significant than mentioned above. Past Surgical History Appendectomy Family History: FH: HTN (hypertension) G8 MOTHER Family History Family history reviewed. Social History Patient denies any illicit drug use Patient denies any tobacco use Patient admits to 2-3 drinks of alcohol every other night Allergies: Coded Allergies: NO KNOWN ALLERGIES (Unverified , 10/26/20) Home Meds No Active Prescriptions or Reported Meds Home Meds Denies taking any prescribed medications Review of Systems Constitutional: No symptom reported Ears, Nose, & Throat: No symptom reported Eyes: No symptom reported Neurological: No symptoms reported Pulmonary/Respiratory: No symptoms reported Cardiovascular: Palpitations Gastrointestinal: No symptom reported Genitourinary: No symptom reported Musculoskeletal: No symptom reported Skin: No symptom reported Psychiatric: No symptom reported Endocrine: No symptom reported Hematologic/Lymphatic: No symptom reported Vital Signs Vital Signs Date Time Temp Pulse Resp B/P (MAP) Pulse Ox O2 Delivery O2 Flow Rate FiO2 02/16/25 12:59 98.1 88 20 134/93 (107) 99 98.1 02/16/25 08:00 Room Air* 0 21 Physical Exam General Appearance: Cooperative. Well-developed. Well-nourished. No acute di stress. Pulmonary/Respiratory: Clear, bilateral breaths sounds. Cardiovascular/Chest: Regular rate and rhythm. Peripheral Pulses: 2+ Radial (R). 2+ Radial (L). 2+ Pedal (R). 2+ Pedal (L) Abdominal Exam: Normal bowel sounds. Ankle Exam: Negative ankle edema Lower extremities: Negative lower extremity edema Neuro/Mental Status: A/OX4, coherent. Thoughts/Psych: Normal thought pattern. Appropriate mood and affect. Good judgment and insight. Appearance: No acute distress. Skin Exam: Normal inspection. Normal color. Warm and dry. Labs/Diagnostic Data Labs Test 02/16/25 06:33 02/15/25 02:43 02/15/25 01:37 02/15/25 00:27 Range/Units Sodium Level 138 136-145 mmol/L Potassium Level 3.7 3.5-5.1 mmol/L Chloride Level 103 98-107 mmol/L Carbon Dioxide Level 27 20-31 mmol/L Anion Gap 8 5-15 Blood Urea Nitrogen 9 9-23 mg/dL Creatinine 0.70 0.550-1.02 mg/dL Glomerular Filtration Rate Calc 114 >90 mL/min BUN/Creatinine Ratio 12.9 10.0-20.0 Serum Glucose 92 74-106 mg/dL Calcium Level 9.9 8.7-10.4 mg/dL Troponin I High Sensitivity 8 </=34 ng/L White Blood Count 7.7 4.4-10.8 10^3/uL Red Blood Count 4.87 4.0-5.20 10^6/uL Hemoglobin 15.2 12.2-16.2 g/dL Hematocrit 44.1 36.0-46.0 % Mean Corpuscular Volume 90.6 80.0-100.0 fL Mean Corpuscular Hemoglobin 31.3 28.0-32.0 pg Mean Corpuscular Hemoglobin Concent 34.6 32.0-36.0 g/dL Red Cell Distribution Width 13.2 11.8-14.3 % Platelet Count 297 140-450 10^3/uL Mean Platelet Volume 9.0 6.9-10.8 fL Neutrophils (%) (Auto) 69.0 37.0-80.0 % Lymphocytes (%) (Auto) 20.9 10.0-50.0 % Monocytes (%) (Auto) 8.3 0.0-12.0 % Eosinophils (%) (Auto) 1.0 0.0-7.0 % Basophils (%) (Auto) 0.8 0.0-2.0 % Neutrophils # (Auto) 5.3 1.6-8.6 10 ^3/uL Lymphocytes # (Auto) 1.6 0.4-5.4 10 ^3/uL Monocytes # (Auto) 0.6 0-1.3 10 ^3/uL Eosinophils # (Auto) 0.1 0-0.8 10 ^3/uL Basophils # (Auto) 0.1 0-0.2 10 ^3/uL Nucleated Red Blood Cells 0.1 % Prothrombin Time 10.5 9.3-11.8 sec Prothrombin Time INR 0.99 0.9-1.15 Activated Partial Thromboplast Time 30.6 24.5-34.5 SEC Lactic Acid Level 1.3 0.4-2.0 mmol/L Magnesium Level 1.9 1.6-2.6 mg/dL Total Bilirubin 0.6 0.2-1.0 mg/dL Aspartate Amino Transferase (AST) 18 13-40 U/L Alanine Aminotransferase (ALT) 17 7-40 U/L Alkaline Phosphatase 68 46-116 U/L Total Protein 7.3 5.7-8.2 g/dL Albumin 4.7 3.2-4.8 g/dL Lipase 34 12-53 U/L Thyroid Stimulating Hormone (TSH) 3.96 0.55-4.78 uIU/mL Plasma/Serum Blood Alcohol < 3.0 <10 mg/dL Urine Color Colorless Yellow Urine Clarity Clear Clear Urine pH 7.0 5.0-9.0 Urine Specific [place] 1.002 1.001-1.035 Urine Protein Negative Negative Urine Ketones Negative Negative Urine Blood Negative Negative /uL Urine Nitrite Negative Negative Urine Bilirubin Negative Negative Urine Urobilinogen Normal Negative mg/dL Urine Leukocyte Esterase Negative Negative /uL Urine RBC None seen 0 - 4 /hpf Urine Microscopic WBC < 1 0-5 /HPF Urine Squamous Epithelial Cells Few <5 /hpf Urine Bacteria Few H None Seen /hpf Urine Glucose Normal Normal mg/dL Urine Opiates Screen Neg NEGATIVE Urine Fentanyl Screen Neg NEGATIVE Urine Barbiturates Screen Neg NEGATIVE Urine Phencyclidine Screen Neg NEGATIVE Urine Amphetamines Screen Neg NEGATIVE Urine Benzodiazepines Screen Neg NEGATIVE Urine Cocaine Screen Neg NEGATIVE Urine Cannabinoids Screen Neg NEGATIVE Assessment Atrial fibrillation with rapid ventricular response, newly diagnosed, now normal sinus rhythm Alcohol use Anxiety Plan/Recommendation We will continue following plan/recommendations (Dr. Sandra): Case discussed with . A transthoracic echocardiogram reveals an EF of 65% with no valve abnormalities. [id number] VASc score: 0 points. Consider NOAC therapy for at least 30 days prior to discharge given chemical cardioversion and risk for thromboembolic event. Initiate low-dose metoprolol. Consider outpatient event monitor. There is no further inpatient cardiac workup indicated. The patient has a scheduled to follow up with Cardiology in the outpatient setting on 03/18/25 at 10:30am with Dr. May. Thank you for allowing us to care for this patient. Please call with any questions or concerns. Critical care time spent: 44 minutes This medical document was created using an electronic medical record system with voice recognition software and computerized dictation system. Although this document has been carefully reviewed, there might still be some phonetic and typographical errors. Occasional wrong-word or ``sound-alike substitutions may have occurred due to the inherent limitations of voice recognition software. These areas are purely typographical due to imperfections of the software programs and do not reflect any compromise in the patient's medical care. Please read the chart carefully and recognize, using context, where these substitutions have occurred. Plan discussed with: Patient NYHA Physical activity limitations: NA Date of Service: Feb 16, 2025 Billing Provider: SILVESTRE RAMIREZ Cardiology Common Codes: 34634-QHRKIDV INP/OBS CARE (High) Cardiology Consultation Codes: 59722-UENHNOIUJ CONSULT <45MIN SILVESTRE RAMIREZ Feb 16, 2025 14:56
--- NOTE | 2025-02-16 15:54 | DVHPNRES ---
Progress Note Date Seen: Feb 16, 2025 Resident Creating Document: DENISSE MIDDLETON ANNA Has the PT tested + for MRSA If YES, has PT been informed?: No Medical Necessity Reason Pt with a Central, PICC or Fol: No Subjective Review of Systems Patient seen and examined at bedside. Patient is feeling better since admission. With the patient is still complaining of occasional palpitation. Cardiology consulted. Objective vital signs Vital Sign Date Time Temp Pulse Resp B/P (MAP) Pulse Ox O2 Delivery O2 Flow Rate FiO2 02/16/25 12:59 98.1 88 20 134/93 (107) 99 98.1 02/16/25 08:00 Room Air* 0 21 Total Intake and Output 02/15/25 02/15/25 02/16/25 15:00 23:00 07:00 Intake Total 166.63 ml 83.30 ml 0 ml Balance 166.63 ml 83.30 ml 0 ml medications Current Medications Medications Dose Ordered Sig/Patricia Route Start Time Stop Time Status Last Admin Dose Admin Acetaminophen 650 mg Q6HP PRN PO 02/15/25 04:30 Examination General Appearance: Alert, Oriented X3, Cooperative, No acute distress HEENT: Atraumatic, PERRLA, EOMI, Mucous membrane moist/pink Respiratory: Clear to auscultation, Normal air movement Cardiovascular: Regular rate, Normal S1, Normal S2, No murmurs, no chest wall tenderness Abdominal: Normal bowel sounds, Soft, No tenderness, No hepatospenomegaly, No masses Extremities: No clubbing, No cyanosis, No edema, Normal pulses, No tenderness/swelling Skin: No rashes, No breakdown, No significant lesion Neuro: Normal gait, Normal speech, Strength at 5/5 X4 ext, Normal tone, Sensation intact, Cranial nerves 3-12 NL, Reflexes 2+ Psych/Mental Status: Mental status NL, Mood NL laboratory and microbiology Laboratory Tests 02/16/25 06:33 02/15/25 01:37 Test 02/16/25 06:33 Range/Units Serum Glucose 92 74-106 mg/dL Labs and/or images reviewed: Labs reviewed by me, Image(s) reviewed by me Problem List/Assessment/Plan Problem List/Assessment/Plan Palpitation, due to atrial fibrillation Atrial fibrillation with RVR, reverted to normal sinus rhythm with amiodarone Anxiety * EKG upon admission showed atrial fibrillation with fast ventricular response * Currently, EKGs shows normal sinus rhythm with no significant ST or T-wave changes * Serial trop I is within normal limits * Chest x-ray shows no intrathoracic abnormalities * Chads Vasc score: 0 Plan/recommendation * Discontinue amiodarone drip * Echocardiogram study normal * Consulted cardiology * We will continue monitor the patient on telemetry for any event DIET: Regular diet DVT PROPHYLAXIS: Lovenox CODE STATUS: Goal of care discussed for more than 18 minutes, full code DISPOSITION: Telemetry Patient's status and plan discussed with the patient. Case discussed with Dr. Wolf. Plan discussed with: Patient, Other (On) My Orders My Orders Orders - DENISSE MIDDLETON Procedure Category Date Status Time * Cardiology Consult CONS 02/16/25 Transmitted 13:47 Date of Service: Feb 16, 2025 Billing Provider: ROSCOE WOLF MD Common Visit Codes: [id number] INP/OBS CARE(HIGH) DENISSE MIDDLETON RESDIENT Feb 16, 2025 15:54 ROSCOE WOLF MD Feb 18, 2025 13:41
[2025-02-16] MEDS: METOPROLOL TARTRATE 25 MG TAB PO SCH (21:20)
[2025-02-17 01:00] VITALS: BP 128/72; PULSE 85; RESP 14; TEMP 97.9; O2SAT 99
[2025-02-17 05:00] VITALS: BP 125/82; PULSE 93; RESP 14; TEMP 97.5; O2SAT 98
[2025-02-17 05:30] LABS: Anion Gap 6 (5-15); Carbon Dioxide 28 mmol/L (20-31); Chloride 105 mmol/L (98-107); Potassium 4.3 mmol/L (3.5-5.1); Sodium 139 mmol/L (136-145)
[2025-02-17 05:32] LABS: Calcium 9.5 mg/dL (8.7-10.4)
[2025-02-17 05:36] LABS: BUN/Creatinine Ratio 10.8 (10.0-20.0); Glucose 91 mg/dL (74-106)
[2025-02-17 05:40] LABS: Blood Urea Nitrogen 7 mg/dL (9-23)
[2025-02-17 07:48] VITALS: PULSE 97; RESP 18; O2SAT 98
[2025-02-17 08:00] VITALS: PULSE 99
[2025-02-17 08:39] VITALS: BP 109/83; PULSE 97; RESP 19; TEMP 98; O2SAT 98
[2025-02-17 12:55] VITALS: BP 135/96; PULSE 71; RESP 18; TEMP 97.5; O2SAT 99
[2025-02-17] MEDS ORDERED: METO25TA93 PO (13:34)
[2025-02-17] MEDS ORDERED: APIX5TAB PO (13:34)
--- NOTE | 2025-02-17 13:35 | DVHDSRES ---
Discharge Summary Date of Admission Resident Creating Document: DENISSE MIDDLETON RESDIENT Feb 15, 2025 at 04:23 Date of Discharge: Feb 17, 2025 Labs/Diagnostic Data: Laboratory Results Test 02/17/25 04:31 02/15/25 02:43 02/15/25 01:37 02/15/25 00:27 Sodium Level 139 mmol/L (136-145) Potassium Level 4.3 mmol/L (3.5-5.1) Chloride Level 105 mmol/L (98-107) Carbon Dioxide Level 28 mmol/L (20-31) Anion Gap 6 (5-15) Blood Urea Nitrogen 7 mg/dL (9-23) Creatinine 0.65 mg/dL (0.550-1.02) Glomerular Filtration Rate Calc 116 mL/min (>90) BUN/Creatinine Ratio 10.8 (10.0-20.0) Serum Glucose 91 mg/dL (74-106) Calcium Level 9.5 mg/dL (8.7-10.4) Troponin I High Sensitivity 8 ng/L (</=34) White Blood Count 7.7 10^3/uL (4.4-10.8) Red Blood Count 4.87 10^6/uL (4.0-5.20) Hemoglobin 15.2 g/dL (12.2-16.2) Hematocrit 44.1 % (36.0-46.0) Mean Corpuscular Volume 90.6 fL (80.0-100.0) Mean Corpuscular Hemoglobin 31.3 pg (28.0-32.0) Mean Corpuscular Hemoglobin Concent 34.6 g/dL (32.0-36.0) Red Cell Distribution Width 13.2 % (11.8-14.3) Platelet Count 297 10^3/uL (140-450) Mean Platelet Volume 9.0 fL (6.9-10.8) Neutrophils (%) (Auto) 69.0 % (37.0-80.0) Lymphocytes (%) (Auto) 20.9 % (10.0-50.0) Monocytes (%) (Auto) 8.3 % (0.0-12.0) Eosinophils (%) (Auto) 1.0 % (0.0-7.0) Basophils (%) (Auto) 0.8 % (0.0-2.0) Neutrophils # (Auto) 5.3 10 ^3/uL (1.6-8.6) Lymphocytes # (Auto) 1.6 10 ^3/uL (0.4-5.4) Monocytes # (Auto) 0.6 10 ^3/uL (0-1.3) Eosinophils # (Auto) 0.1 10 ^3/uL (0-0.8) Basophils # (Auto) 0.1 10 ^3/uL (0-0.2) Nucleated Red Blood Cells 0.1 % Prothrombin Time 10.5 sec (9.3-11.8) Prothrombin Time INR 0.99 (0.9-1.15) Activated Partial Thromboplast Time 30.6 SEC (24.5-34.5) Lactic Acid Level 1.3 mmol/L (0.4-2.0) Magnesium Level 1.9 mg/dL (1.6-2.6) Total Bilirubin 0.6 mg/dL (0.2-1.0) Aspartate Amino Transferase (AST) 18 U/L (13-40) Alanine Aminotransferase (ALT) 17 U/L (7-40) Alkaline Phosphatase 68 U/L (46-116) Total Protein 7.3 g/dL (5.7-8.2) Albumin 4.7 g/dL (3.2-4.8) Lipase 34 U/L (12-53) Thyroid Stimulating Hormone (TSH) 3.96 uIU/mL (0.55-4.78) Plasma/Serum Blood Alcohol < 3.0 mg/dL (<10) Urine Color Colorless (Yellow) Urine Clarity Clear (Clear) Urine pH 7.0 (5.0-9.0) Urine Specific [place] 1.002 (1.001-1.035) Urine Protein Negative (Negative) Urine Ketones Negative (Negative) Urine Blood Negative /uL (Negative) Urine Nitrite Negative (Negative) Urine Bilirubin Negative (Negative) Urine Urobilinogen Normal mg/dL (Negative) Urine Leukocyte Esterase Negative /uL (Negative) Urine RBC None seen /hpf (0 - 4) Urine Microscopic WBC < 1 /HPF (0-5) Urine Squamous Epithelial Cells Few /hpf (<5) Urine Bacteria Few /hpf (None Seen) Urine Glucose Normal mg/dL (Normal) Urine Opiates Screen Neg (NEGATIVE) Urine Fentanyl Screen Neg (NEGATIVE) Urine Barbiturates Screen Neg (NEGATIVE) Urine Phencyclidine Screen Neg (NEGATIVE) Urine Amphetamines Screen Neg (NEGATIVE) Urine Benzodiazepines Screen Neg (NEGATIVE) Urine Cocaine Screen Neg (NEGATIVE) Urine Cannabinoids Screen Neg (NEGATIVE) Other Laboratory Tests 02/17/25 04:31 02/15/25 01:37 Brief Hx & Hospital Course: HISTORY OF PRESENTING ILLNESS: 39-year-old female presents for evaluation of palpitations. Patient reports taking a nap in the afternoon and being awoken by what she thought was initially anxiety. She developed severe palpitations. She presented for further evaluation. No complaints of chest pain, shortness for breath or nausea. No other acute complaints reported. Per patient, he has on and off palpitation since 7 years which mostly happens prior to menstruation starts, but has never been diagnosed with the atrial fibrillation. HOSPITAL COURSE: Patient was admitted on the line of atrial fibrillation with rapid ventricular response. EKG performed, showed AFib with RVR. Subsequently the patient was given bolus amiodarone which departed rhythm to sinus rhythm. Echocardiogram was performed, showed normal studies. Cardiology was consulted, evaluated the patient and recommended metoprolol 25 mg daily, Eliquis 5 mg b.i.d. for 30 days and cardiology follow up for Holter monitoring. On 02/07/2025, the patient was feeling better since admission. Discharge plan discussed with the patient the patient discharged home. DISCHARGE PLAN: Follow up with the PCP within 1 week of the discharge. Follow up with the Cardiology on outpatient basis. Follow up with the discharge Clinic within 1 week of the discharge. Tablet metoprolol succinate 25 mg daily Tablet Eliquis 5 mg b.i.d. for 30 days DISCHARGE DIAGNOSIS: Atrial fibrillation with rapid ventricular response Anxiety Acquired hypercoagulability Alcohol use disorder Condition at Discharge: Good Final Diagnosis/Problems List Atrial Firbillation with RVR Discharge Disposition: Home Discharge Instruct/Medications Diet: Cardiac 2g Na,low cholest Activity: No Restrictions, As Tolerated Follow Up/Referral: Follow up with the PCP within 1 week of the discharge. Follow up with the Cardiology on outpatient basis. Follow up with the discharge Clinic within 1 week of the discharge Medications: Tablet Eliquis 5 mg b.i.d. for 30 days Med tablet metoprolol 25 mg daily Scheduled Apixaban Base (Eliquis), 5 MG PO BID Metoprolol Succinate (Metoprolol Succinate Er), 25 MG PO DAILY Discharge Statement: "Patient was advised to return to the ER or call 911 if any headaches, dizziness, shortness of breath, chest pain, abdominal pain, bleeding, fevers, or worsening of medical condition. Patient was counseled about treatment plan, medications, possible side effects, patientverbalized understanding. All questions were answered to the best of my ability. This discharge took greater then 30 minutes in planning, reviewing documentation, counseling the patient, and discussing with other team members." ASSESSMENT ASSESSMENT Assessment Atrial Firbillation with RVR Date of Service: Feb 17, 2025 Billing Provider: ROSCOE WOLF MD Common Visit Codes: 11368-BDU/OBS DISCH DAY >30min DENISSE MIDDLETON RESDIROLANDO Feb 17, 2025 13:35 ROSCOE WOLF MD Feb 18, 2025 14:01
== END 2025-02-17 16:30 | disposition home or self-care (01) | DRG 309 ==
LOC: ER 23:23 → OVERFLOW 02-15 04:23 → TELE-WESTW 02-15 21:25
PROVIDERS: ADMIT Student in an Organized Health Care Education/Training Program; ATTEND Student in an Organized Health Care Education/Training Program
DX: I48.91 Unspecified atrial fibrillation (principal); D68.59 Other primary thrombophilia; F41.9 Anxiety disorder, unspecified; F10.10 Alcohol abuse, uncomplicated; Z82.49 Family history of ischemic heart disease and other diseases of the circulatory system; Z90.49 Acquired absence of other specified parts of digestive tract; Z79.899 Other long term (current) drug therapy; Y90.9 Presence of alcohol in blood, level not specified
CPT/HCPCS: 36415; 71045; 80048; 80053; 80307; 80320; 81001; 83605; 83690; 83735; 84443; 84484; 85025; 85610; 85730; 93306; 96365; 96375; G0378

== ENCOUNTER 2025-04-05 10:30 | Emergency (ER) | payer OTHER ==
[~2025-04-05] VITALS: Ht 172.7 cm; Wt 61.9 kg
[~2025-04-05 10:30] MED LIST: APIX5TAB PO; METO25TA93 PO
[2025-04-05 10:32] VITALS: BP 153/100; PULSE 83; RESP 16; TEMP 98.1; O2SAT 99
--- NOTE | 2025-04-05 12:33 | ED.PDOC ---
History of Present Illness HPI Comments 40-year-old female presents to the ER with a chief complaint of a medication refill. Patient reports that she was recently diagnosed with the AFib and ran out of her blood pressure medications named metoprolol. Denies any other symptoms at the time. Chief Complaint: High Blood Pressure Time Seen by MD: 12:30 Primary Care Provider: DENIES Reviewed Notes: Nurses Notes, Medications, Allergies Allergies: Coded Allergies: NO KNOWN ALLERGIES (Unverified , 10/26/20) Home Meds Active Scripts Metoprolol Succinate (Metoprolol Succinate Er) 25 Mg Tab, 1 TAB PO DAILY for 30 Days, #30 TAB 0 Refills Prov:TAMARA FAUSTIN MAINTENANCE OF WAY CLERK 04/05/25 Metoprolol Succinate (Metoprolol Succinate Er) 25 Mg Tab, 25 MG PO DAILY for 30 Days, #30 TAB Prov:DENISSE MIDDLETON RESDIENT 02/17/25 Apixaban Base (ELIQUIS) 5 Mg Tab, 5 MG PO BID for 30 Days, #60 TAB Prov:DENISSE MIDDLETON RESDIENT 02/17/25 Information Source: Patient Mode of Arrival: Ambulatory Severity: Moderate Duration: Since onset Prehospital treatment: None Past Medical History PAST MEDICAL HISTORY: AFIB Surgical History: Denies all surgeries CUSTOMER QUALITY ENGINEER History: Denies all CUSTOMER QUALITY ENGINEER Hx Family History Family History: Reviewed,noncontributory to illness, Unknown Social History Smoker: Non-Smoker Alcohol: Denies ETOH Use Drugs: Denies Drug Use Lives In: Home Constitutional: reports: others (Medication refill); denies: chills, diaphoresis, fatigue, fever, malaise, sweats, weakness EENTM: denies: blurred vision, double vision, ear bleeding, ear discharge, ear drainage, ear pain, ear ringing, eye pain, eye redness, hearing loss, mouth pain, mouth swelling, nasal discharge, nose bleeding, nose congestion, nose pain, photophobia, tearing, throat pain, throat swelling, voice changes, others Respiratory: denies: cough, hemoptysis, orthopnea, SOB at rest, shortness of breath, SOB with excertion, stridor, wheezing, others Cardiovascular: denies: chest pain, dizzy spells, diaphoresis, Dyspnea on exertion, edema, irregular heart beat, left arm pain, lightheadedness, palpita tions, PND, syncope, others Gastrointestinal: denies: abdomen distended, abdominal pain, blood streaked eugene wels, constipated, diarrhea, dysphagia, difficulty swallowing, hematemesis, melena, nausea, poor appetite, poor fluid intake, rectal bleeding, rectal pain, vomiting, others Genitourinary: denies: abnormal vagina bleeding, burning, dyspareunia, dysuria, flank pain, frequency, hematuria, incontinence, pain, , vagina discharge, urgency, others Neurological: denies: dizziness, fainting, headache, left sided numbness, left sided weakness, numbness, paresthesia, pre-existing deficit, right sided numbness, right sided weakness, seizure, speech problems, tingling, tremors, weakness, others Musculoskeletal: denies: back pain, gout, joint pain, joint swelling, muscle pain, muscle stiffness, neck pain, others Integumetry: denies: bruises, change in color, change in hair/nails, dryness, laceration, lesions, lumps, rash, wounds, others Allergic/Immunocompromised: denies: Difficulty Healing, Frequent Infections, Hives, Itching, others Hematologic/Lymphatic: denies: anemia, blood clots, easy bleeding, easy bruis ing, swollen glands, others Endocrine: denies: excessive hunger, excessive sweating, excessive thirst, exc essive urination, flushing, intolerance to cold, intolerance to heat, unexplained weight gain, unexplained weight loss, others Psychiatric: denies: anxiety, bipolar disorder, depression, hopeless, panic disorder, schizophrenia, sleepless, suicidal, others All Other Systems: Reviewed and Negative Physical Exam General Appearance: No Apparent Distress, Normal HEENT: Normal ENT Inspection, Pharynx Normal, TMs Normal Neck: Full Range of Motion, Non-Tender, Normal, Normal Inspection Respiratory: Chest Non-Tender, Lungs Clear, No Accessory Muscle Use, No Respiratory Distress, Normal Breath Sounds Cardiovascular: No Edema, No JVD, No Murmur, No Gallop, Normal Peripheral Pulses, Regular Rate/Rhythm Breast Exam: Deferred Gastrointestinal: No Organomegaly, Non Tender, No Pulsatile Mass, Normal Bowel Sounds, Soft Genitalia: Deferred Pelvic: Deferred Rectal: Deferred Extremities: No calf tenderness, Normal capillary refill, Normal inspection, Normal range of motion, Non-tender, No pedal edema Musculoskeletal : Apperance: Normal Neurologic: Alert, graphic design teacher II-XII nml as Tested, No Motor Deficits, Normal Affect, Normal Mood, No Sensory Deficits Cerebellar Function: Normal Reflexes: Normal Skin: Dry, Normal Color, Warm Lymphatic: No Adenopathy Was a procedure done? Was a procedure done?: No Differential Dx Considerations may include: Med refill X-Ray, Labs, Meds, VS Vital Signs Date Time Temp Pulse Resp B/P (MAP) Pulse Ox O2 Delivery O2 Flow Rate FiO2 04/05/25 10:32 98.1 83 16 157/104 99 98.1 153/100 X-Ray, Labs, Meds, VS Comment 40-year-old female presents to the ER with a chief complaint of a medication refill. Patient arrives alert and oriented, ABC's intact, afebrile, vital signs stable, saturating well in room air Time of 1ST Reevaluation: 13:00 Reevaluation 1ST: Unchanged Patient Education/Counseling: Diagnosis, Treatment, Prognosis Family Education/Counseling: No Family Present SEPSIS Sepsis Screen Date sepsis recognized/suspect: Apr 05, 2025 Time Sepsis recognized/suspect: 1032 Recent Procedure: No On Antibiotic Therapy: No Respiratory Rate >20: No Heart Rate >90: No Temp<36 C (96.8 F) or >38.3 C: No SBP <90 or MAP <65 mmHG: No New Acute Mental Status Change: No Is the patient on CPAP, BIPAP,: No Vital Signs Date Time Temp Pulse Resp B/P (MAP) Pulse Ox O2 Delivery O2 Flow Rate FiO2 04/05/25 10:32 98.1 83 16 157/104 99 98.1 153/100 Departure 1 Departure Time of Disposition: 13:01 Impression: Primary Impression: Medication refill Disposition: HOME / SELF CARE / HOMELESS Condition: Stable e-Prescriptions Metoprolol Succinate (Metoprolol Succinate Er) 25 Mg Tab 1 TAB PO DAILY for 30 Days, #30 TAB 0 Refills Prov: TAMARA FAUSTIN NP 04/05/25 Discharged With: Self Critical Care Note Critical Care Time?: No Stability Stability form required: No Heart Score Heart Score: Heart Score Response (Comments) Value History N/A 0 EKG N/A 0 Age N/A 0 Risk Factors N/A 0 Troponin N/A 0 Total 0 I personally scribed for TAMARA FAUSTIN NP ([email or web address]) on 04/05/25 at 12:33. Electronically submitted by Damon Espinal ([email or web address]). TAMARA FAUSTIN NP Apr 05, 2025 12:33
[2025-04-05] MEDS ORDERED: METO25TA93 PO (12:34)
== END 2025-04-05 12:47 | disposition home or self-care (01) ==
LOC: ER 10:30
DX: I48.91 Unspecified atrial fibrillation (principal); Z76.0 Encounter for issue of repeat prescription; Z79.899 Other long term (current) drug therapy